=== PATIENT | male | born 1985 | race Asian ===

== ENCOUNTER 2021-09-23 05:36 | Inpatient (IN) ==
[2021-09-23] MEDS: Ondansetron ODT 4 mg TAB 4 MG TAB SL PRN (06:25)
[2021-09-23] MEDS ORDERED: Lactated Ringers 1000 ml BAG 1,000 ML IV ONE (08:30)
[2021-09-23 08:32] LABS: ABS Lymphocytes 0.6 10^3/ul (1.0-4.8); ABS Monocytes 0.3 10^3/ul (0-0.8); ABS Neutrophils 2.8 10^3/ul (1.5-7.7); Hematocrit 43 % (42-52); Hemoglobin 14.6 g/dL (14.0-18.0); Lymphocyte % 15.5 %; Mean Corpuscular HGB Conc 34 g/dL (31-36); Mean Corpuscular Hemoglobin 28 pg (27-31); Mean Corpuscular Volume 82 fL (80-94); Mean Platelet Volume 7.8 fL (7.4-10.4); Nucleated Red Blood Cells % 0.2; Platelet Count 136 10^3/uL (150-450); Red Blood Count 5.22 10^6 /uL (4.18-5.48); Red Cell Distribution Width 13 % (10-15); White Blood Count 3.6 10^3/uL (3.5-10.8)
[2021-09-23 08:35] LABS: Venous Bicarbonate HCO3 28.2 mmol/L (24-28)
[2021-09-23 08:48] LABS: Activated Partial Thrombo Time 34.5 seconds (26.0-38.0); INR 1.06 (0.86-1.15)
[2021-09-23 08:50] LABS: ALT 435 U/L (7-52); AST 424 U/L (13-39); Albumin 3.6 g/dL (3.2-5.2); Albumin/Globulin Ratio 1.1 (1-3); Alkaline Phosphatase 123 U/L (35-149); Anion Gap 8 mmol/L (2-11); Blood Urea Nitrogen 12 mg/dL (6-24); C Reactive Protein 76.17 mg/L (<8.01); CO2 Carbon Dioxide 24 mmol/L (22-32); Calcium 8.3 mg/dL (8.6-10.3); Chloride 98 mmol/L (101-111); Globulin 3.4 g/dL (2-4); Glucose 110 mg/dL (70-100); Potassium 3.9 mmol/L (3.5-5.0); Sodium 130 mmol/L (135-145); Troponin I 0.01 ng/mL (<0.03); eGFR CKD-EPI 112.9 (>60)
[2021-09-23] MEDS ORDERED: Ondansetron 4 mg VIAL 2 MG/ML 2 ml VIAL IV PRN (09:10)
[2021-09-23] MEDS ORDERED: Prochlorperazine 5 mg/ml 2 ml VIAL (10 mg) IV PRN (09:10)
[2021-09-23] MEDS ORDERED: Remdesivir 100 mg Vial 200 MG in NS 0.9% 250 ml 210 ML IV ONE (09:30)
[2021-09-23 09:34] LABS: LDH 1017 U/L (140-271)
[2021-09-23 10:00] LABS: Ferritin > 1500.0 ng/mL (24-336)
[2021-09-23] MEDS: Enoxaparin 40 MG/0.4 ML SYR SUBCUT SCH (10:54)
[2021-09-24 06:50] LABS: INR 1.05 (0.86-1.15)
[2021-09-24 07:00] LABS: Albumin 3.5 g/dL (3.2-5.2); Albumin/Globulin Ratio 1.1 (1-3); Calcium 8.2 mg/dL (8.6-10.3); Globulin 3.3 g/dL (2-4); Potassium 4.1 mmol/L (3.5-5.0); Total Bilirubin 0.6 mg/dL (0.2-1.0); Total Protein 6.8 g/dL (6.4-8.9); eGFR CKD-EPI 114.1 (>60)
[2021-09-24] MEDS: Remdesivir 100 mg Vial 100 MG in NS 0.9% 250 ml 230 ML IV SCH (08:50)
[2021-09-24] MEDS: Enoxaparin 40 MG/0.4 ML SYR SUBCUT SCH (08:50)
[2021-09-24] MEDS: Ondansetron ODT 4 mg TAB 4 MG TAB SL PRN (10:23)
[2021-09-25 05:51] LABS: INR 1.09 (0.86-1.15)
[2021-09-25 06:03] LABS: Potassium 4.1 mmol/L (3.5-5.0)
[2021-09-25 06:04] LABS: Albumin 3.5 g/dL (3.2-5.2); Albumin/Globulin Ratio 1.1 (1-3); Calcium 8.3 mg/dL (8.6-10.3); Globulin 3.3 g/dL (2-4); Total Bilirubin 0.7 mg/dL (0.2-1.0); Total Protein 6.8 g/dL (6.4-8.9); eGFR CKD-EPI 114.1 (>60)
[2021-09-25] MEDS: Remdesivir 100 mg Vial 100 MG in NS 0.9% 250 ml 230 ML IV SCH (10:18)
[2021-09-25] MEDS: Enoxaparin 40 MG/0.4 ML SYR SUBCUT SCH (10:18)
[2021-09-26 05:25] VITALS: BP 110/60
[2021-09-26] MEDS ORDERED: Remdesivir 100 mg Vial 100 MG in NS 0.9% 250 ml 230 ML IV SCH (06:00)
[2021-09-26 07:00] LABS: INR 1.08 (0.86-1.15)
[2021-09-26 07:04] LABS: Albumin 3.5 g/dL (3.2-5.2); Albumin/Globulin Ratio 1.1 (1-3); Calcium 8.2 mg/dL (8.6-10.3); Globulin 3.2 g/dL (2-4); Potassium 4.1 mmol/L (3.5-5.0); Total Bilirubin 0.8 mg/dL (0.2-1.0); Total Protein 6.7 g/dL (6.4-8.9); eGFR CKD-EPI 117.1 (>60)
== END 2021-09-26 09:35 | disposition home or self-care (01) | DRG 177 ==
LOC: ED 05:36 → EDHOLD 09:26 → MED 17:11
PROVIDERS: ADMIT Hospitalist; ATTEND Hospitalist